=== PATIENT | female | born 1955 | race Caucasian/White ===

== ENCOUNTER 2023-09-23 16:01 | Emergency (ER) | payer OTHER ==
[~2023-09-23] VITALS: Ht 154.9 cm; Wt 57.6 kg
[2023-09-23 16:44] VITALS: BP_SYST 133; PULSE 63; RESP 18; TEMP 98.2; O2SAT 100
[2023-09-23] MEDS ORDERED: ONDA-8 TL (17:47)
[2023-09-23] MEDS ORDERED: IBUP-1969 PO (17:47)
[2023-09-23 19:09] VITALS: BP_SYST 133; PULSE 63; RESP 18; TEMP 98.2; O2SAT 100
== END 2023-09-23 17:55 | disposition home or self-care (01) ==
LOC: SED 16:01
DX: S06.0X0A Concussion without loss of consciousness, initial encounter (principal); S00.83XA Contusion of other part of head, initial encounter; Z79.899 Other long term (current) drug therapy; W22.8XXA Striking against or struck by other objects, initial encounter; Y93.89 Activity, other specified; Y92.89 Other specified places as the place of occurrence of the external cause; Y99.8 Other external cause status
CPT/HCPCS: 70450-TC; 76376; 99284